=== PATIENT | female | born 1995 | race Caucasian/White ===

== ENCOUNTER → 2021-06-21 09:24 | Outpatient (CLI) | payer OTHER, SELFPAY ==
[2021-06-21 20:20] LABS: COVID19 - ORCAS (NP or Nasal) Negative (Negative)
== END ==
PROVIDERS: PCP Physician Assistant Medical; Visit Provider Physician Assistant Medical
DX: Z13.9 Encounter for screening, unspecified (principal)
CPT/HCPCS: U0003

== ENCOUNTER → 2022-08-06 12:25 | Outpatient (CLI) | payer OTHER, SELFPAY ==
--- NOTE | 2022-08-06 12:26 | DI.US.S_ITS ---
PROCEDURE: US SOFT TISSUE HEAD AND NECK INDICATIONS: swelling left side neck x 1 week TECHNIQUE: Real-time scanning was performed of the neck region of interest, with image documentation. COMPARISON: None. FINDINGS: Ultrasound examination left neck at patient's reported area of swelling shows multiple enlarged lymph nodes with largest lymph nodes in left upper neck soft tissue measures 2.8 x 0.6 x 1.4 cm and 3.6 x 0.7 x 1.2 cm in size. Large is left posterior neck soft tissue lymph nodes measures up to 1 x 0.2 x 0.7 cm in size. IMPRESSION: Multiple enlarged lymph nodes in left superior and posterior neck soft tissue as described above. Clinical correlation and follow-up is recommended. Dictated by: Bebeto De Luna M.D. on 08/06/2022 at 17:38 Approved by: Bebeto De Luna M.D. on 08/06/2022 at 17:39
== END ==
PROVIDERS: PCP Physician Assistant; Referring Provider Physician Assistant; Visit Provider Physician Assistant
DX: I88.9 Nonspecific lymphadenitis, unspecified (principal)
CPT/HCPCS: 76536

== ENCOUNTER → 2022-08-07 12:09 | Outpatient (CLI) | payer OTHER, SELFPAY ==
[2022-08-07 19:24] LABS: Add Manual Diff / Slide Review NO; Basophils Absolute Auto 0 /uL (0-100); Basophils Percent Auto 0.4 % (0-2); Eosinophils Absolute Auto 500 /uL (0-450); Eosinophils Percent Auto 4.4 % (2-4); Hematocrit 42.6 % (36-46); Hemoglobin 14.6 g/dL (12.0-16.0); Lymphocytes Absolute Auto 2700 /uL (1100-4500); Lymphocytes Percent Auto 22.8 % (25-40); Mean Corpuscular HGB Conc 34.3 % (30-36); Mean Corpuscular Hemoglobin 33.2 PG (26-34); Mean Corpuscular Volume 96.8 fL (80-100); Monocytes Absolute Auto 800 /uL (0-900); Monocytes Percent Auto 6.6 % (3-14); Neutrophils Absolute Auto 7700 /uL (1500-7000); Neutrophils Percent Auto 65.8 % (50-75); Platelet Count 311 X10^3/uL (150-400); Red Cell Distribution Width 12.4 % (11.6-14.8); White Blood Cell Count 11.7 X10^3/uL (4.5-11.0)
[2022-08-07 20:13] LABS: Alanine Aminotransferase 19 IU/L (<35); Albumin 4.5 g/dL (3.5-5.0); Albumin Globulin Ratio 1.3 (1.0-2.8); Alkaline Phosphatase 64 U/L (38-126); Aspartate Aminotransferase 22 IU/L (14-36); BUN Creatinine Ratio 11.9 (6-22); Bilirubin Total 0.6 mg/dL (0.2-1.3); Blood Urea Nitrogen 7 mg/dL (7-17); C-Reactive Protein Quant < 0.5 mg/dL (<1.0); Calcium 9.6 mg/dL (8.4-10.2); Carbon Dioxide 26 mmol/L (22-32); Chloride 104 mmol/L (98-107); Estimated Glomerular Filt Rate > 60 mL/min (>60); Globulin 3.5 g/dL (1.7-4.1); Glucose 79 mg/dL (70-100); HEMOLYSIS < 15 (0-50); Lactate Dehydrogenase 194 U/L (120-246); Potassium 4.3 mmol/L (3.4-5.1); Sodium 139 mmol/L (137-145)
[2022-08-07 20:27] LABS: Erythrocyte Sedimentation Rate 4 MM/HR (0-20)
[2022-08-07 20:42] LABS: Monotest Negative (Negative)
[2022-08-12 20:50] LABS: Epstein Barr Virus by PCR Positive (Negative)
== END ==
PROVIDERS: PCP Physician Assistant; Visit Provider Physician Assistant
DX: I88.9 Nonspecific lymphadenitis, unspecified (principal)
CPT/HCPCS: 80053; 83615; 85025; 85651; 86140; 86318; 87798

== ENCOUNTER → 2022-08-13 10:24 | Outpatient (CLI) | payer OTHER, SELFPAY ==
[2022-08-13 19:19] LABS: Add Manual Diff / Slide Review NO; Basophils Absolute Auto 0 /uL (0-100); Basophils Percent Auto 0.6 % (0-2); Eosinophils Absolute Auto 400 /uL (0-450); Hematocrit 41.1 % (36-46); Hemoglobin 14.1 g/dL (12.0-16.0); Lymphocytes Absolute Auto 2300 /uL (1100-4500); Lymphocytes Percent Auto 30.6 % (25-40); Mean Corpuscular HGB Conc 34.3 % (30-36); Mean Corpuscular Hemoglobin 34.8 PG (26-34); Mean Corpuscular Volume 101.3 fL (80-100); Monocytes Absolute Auto 600 /uL (0-900); Monocytes Percent Auto 8.2 % (3-14); Neutrophils Absolute Auto 4200 /uL (1500-7000); Neutrophils Percent Auto 55.6 % (50-75); Platelet Count 323 X10^3/uL (150-400); Red Blood Cell Count 4.05 X10^6/uL (4.0-5.2); Red Cell Distribution Width 12.6 % (11.6-14.8); White Blood Cell Count 7.6 X10^3/uL (4.5-11.0)
== END ==
PROVIDERS: PCP Physician Assistant; Visit Provider Physician Assistant
DX: I88.9 Nonspecific lymphadenitis, unspecified (principal)
CPT/HCPCS: 85025; 86664; 86665

== ENCOUNTER → 2022-09-03 09:40 | Outpatient (CLI) | payer OTHER, SELFPAY ==
--- NOTE | 2022-09-03 09:41 | DI.US.S_ITS ---
PROCEDURE: US SOFT TISSUE HEAD AND NECK INDICATIONS: PROMINENT LEFT CERVICAL CHAIN LYMPH NODES TECHNIQUE: Real-time scanning was performed of the neck region of interest, with image documentation. COMPARISON: [facility], , US SOFT TISSUE HEAD AND NECK, 08/06/2022, 11:42. FINDINGS: Previously demonstrated prominent left upper neck lymph nodes are decreased in size since the previous exam. [employer] lymph nodes include: -2.0 x 0.5 x 1.4 cm lymph node, previously 2.8 x 0.6 x 1.4 cm. -2.0 x 0.4 x 1.2 cm lymph node, previously 3.6 x 0.7 x 1.2 cm. Both lymph nodes appear unremarkable in morphology, with reniform shape and presence of an echogenic hilum. IMPRESSION: Previously visualized prominent left upper neck lymph nodes have decreased in size. Additionally, the patient reports that they are less easily palpated than before. Given the decrease in size of the lymph nodes and absence of highly suspicious morphologic features, planned biopsy was canceled. Correlation for any potential etiology of reactive adenopathy may be helpful. Clinical follow-up is recommended and if indicated, repeat imaging could be performed or a repeat biopsy request could be placed. Dictated by: Brendan Franco M.D. on 09/03/2022 at 10:40 Approved by: Brendan Franco M.D. on 09/03/2022 at 10:49
== END ==
PROVIDERS: PCP Physician Assistant; Referring Provider Physician Assistant; Visit Provider Physician Assistant
DX: I88.9 Nonspecific lymphadenitis, unspecified (principal)
CPT/HCPCS: 76536

== ENCOUNTER → 2022-09-10 11:56 | Outpatient (CLI) | payer OTHER, SELFPAY ==
[2022-09-10 19:31] LABS: Add Manual Diff / Slide Review NO; Basophils Absolute Auto 100 /uL (0-100); Basophils Percent Auto 0.7 % (0-2); Eosinophils Absolute Auto 600 /uL (0-450); Eosinophils Percent Auto 6.8 % (2-4); Hematocrit 41.1 % (36-46); Hemoglobin 14.4 g/dL (12.0-16.0); Lymphocytes Absolute Auto 1700 /uL (1100-4500); Lymphocytes Percent Auto 20.1 % (25-40); Mean Corpuscular Hemoglobin 34.7 PG (26-34); Monocytes Absolute Auto 1100 /uL (0-900); Monocytes Percent Auto 12.4 % (3-14); Neutrophils Absolute Auto 5100 /uL (1500-7000); Platelet Count 262 X10^3/uL (150-400); Red Blood Cell Count 4.15 X10^6/uL (4.0-5.2); Red Cell Distribution Width 12.2 % (11.6-14.8); White Blood Cell Count 8.5 X10^3/uL (4.5-11.0)
[2022-09-10 19:39] LABS: Lactate Dehydrogenase 161 U/L (120-246)
[2022-09-10 19:54] LABS: Monotest Negative (Negative)
[2022-09-10 20:42] LABS: Folate 5.7 ng/mL (2.76-20.0); Vitamin B12 359 pg/mL (239-931)
== END ==
PROVIDERS: PCP Physician Assistant; Visit Provider Physician Assistant
DX: I88.9 Nonspecific lymphadenitis, unspecified (principal); R71.8 Other abnormality of red blood cells; U07.1 COVID-19
CPT/HCPCS: 82607; 82746; 83615; 85025; 86318; 87040

== ENCOUNTER → 2023-02-12 11:25 | Outpatient (CLI) | payer OTHER, SELFPAY ==
[2023-02-12 12:14] LABS: Add Manual Diff / Slide Review NO; Basophils Absolute Auto 100 /uL (0-100); Basophils Percent Auto 0.5 % (0-2); Eosinophils Absolute Auto 300 /uL (0-450); Eosinophils Percent Auto 2.2 % (2-4); Hematocrit 39.2 % (36-46); Hemoglobin 13.7 g/dL (12.0-16.0); Lymphocytes Absolute Auto 3100 /uL (1100-4500); Lymphocytes Percent Auto 25.7 % (25-40); Mean Corpuscular Hemoglobin 33.2 PG (26-34); Mean Corpuscular Volume 94.8 fL (80-100); Monocytes Absolute Auto 900 /uL (0-900); Monocytes Percent Auto 7.9 % (3-14); Neutrophils Absolute Auto 7600 /uL (1500-7000); Neutrophils Percent Auto 63.7 % (50-75); Platelet Count 360 X10^3/uL (150-400); Red Blood Cell Count 4.14 X10^6/uL (4.0-5.2); Red Cell Distribution Width 12.3 % (11.6-14.8); White Blood Cell Count 11.9 X10^3/uL (4.5-11.0)
[2023-02-12 16:57] LABS: Hepatitis B Surface Antigen NEGATIVE s/c (NEGATIVE); Rubella Antibody IgG 16.2 IU/mL (>15)
[2023-02-12 17:13] LABS: HIV 1 & 2 Ab/Ag 4th Gen Combo NEGATIVE (NEGATIVE); Hep C Virus Ab w/Reflex Quant NEGATIVE s/c (NEGATIVE)
[2023-02-13 06:13] LABS: RPR Screen Non Reactive (Non Reactive)
[2023-02-13 08:41] LABS: Varicella IgG Antibody 2775 index (Immune >165)
== END ==
PROVIDERS: PCP Physician Assistant; Referring Provider Specialist; Visit Provider Specialist
DX: Z34.00 Encounter for supervision of normal first pregnancy, unspecified trimester (principal)
CPT/HCPCS: 36415; 80055; 86787; 86803; 86850; 86900; 86901; 87389